=== PATIENT | female | born 1970 | race African-American/Black ===

== ENCOUNTER 2017-11-11 14:52 | Emergency (ER) | payer OTHER, MEDICAID ==
[~2017-11-11] VITALS: Ht 165.1 cm; Wt 112.7 kg
[~2017-11-11 14:52] MED LIST: ABILIFY; ESCI5TAB
[2017-11-11] MEDS ORDERED: CYCLOBENZAPRINE 10MG TABLET PO ONE (16:30)
[2017-11-11] MEDS ORDERED: KETOROLAC 30MG/ML VIAL IM ONE (16:30)
[2017-11-11 17:49] VITALS: BP 130/68
== END 2017-11-11 17:57 | disposition home or self-care (01) ==
LOC: ER 15:59
DX: M54.2 Cervicalgia (principal); M25.512 Pain in left shoulder; M25.511 Pain in right shoulder; I10 Essential (primary) hypertension; E11.9 Type 2 diabetes mellitus without complications; F17.200 Nicotine dependence, unspecified, uncomplicated
CPT/HCPCS: 96372; 99283; J1885

== ENCOUNTER 2018-11-20 09:35 | Emergency (ER) | payer OTHER, MEDICAID ==
[~2018-11-20] VITALS: Ht 165.1 cm; Wt 109.0 kg
[2018-11-20 11:58] LABS: CLARITY URINE CLEAR (CLEAR); COLOR URINE YELLOW (YELLOW); KETONES URINE NEGATIVE (NEGATIVE); LEUKOCYTE ESTERASE URINE NEGATIVE (NEGATIVE); NITRITE URINE NEGATIVE (NEGATIVE); OCCULT BLOOD URINE NEGATIVE (NEGATIVE); PH URINE 6.5 (4.5-8.0); PROTEIN URINE NEGATIVE (NEGATIVE); SPECIFIC GRAVITY URINE 1.007 (1.005-1.030); UROBILINOGEN URINE 0.2 E.U./dL (0.2-1.0)
[2018-11-20 14:40] VITALS: BP 157/92
== END 2018-11-20 14:48 | disposition home or self-care (01) ==
LOC: ER 09:35
DX: N39.0 Urinary tract infection, site not specified (principal); F20.9 Schizophrenia, unspecified; F17.290 Nicotine dependence, other tobacco product, uncomplicated
CPT/HCPCS: 81025; 99283; 99406

== ENCOUNTER 2019-09-26 21:20 | Emergency (ER) | payer MEDICARE, MEDICAID ==
[~2019-09-26] VITALS: Ht 165.1 cm; Wt 104.0 kg
[2019-09-26] MEDS ORDERED: IPRATROPIUM/ALBUTEROL 0.5-3(2.5)MG/3ML NEB HHN ONE (23:00)
[2019-09-27 01:04] VITALS: BP 122/74
== END 2019-09-27 01:05 | disposition home or self-care (01) ==
LOC: ER 21:20
DX: J40 Bronchitis, not specified as acute or chronic (principal); J06.9 Acute upper respiratory infection, unspecified; F32.9 Major depressive disorder, single episode, unspecified; F17.210 Nicotine dependence, cigarettes, uncomplicated; Z71.6 Tobacco abuse counseling
CPT/HCPCS: 71045; 94640; 99283; J7620

== ENCOUNTER 2020-07-27 15:19 | Emergency (ER) | payer OTHER, MEDICAID ==
[~2020-07-27] VITALS: Ht 160 cm; Wt 101.0 kg
[2020-07-27 15:23] VITALS: BP 146/76
== END 2020-07-27 17:17 | disposition home or self-care (01) ==
LOC: ER 15:19
DX: N61.0 Mastitis without abscess (principal); I10 Essential (primary) hypertension; F20.9 Schizophrenia, unspecified
CPT/HCPCS: 99281

== ENCOUNTER 2020-08-18 13:59 | Emergency (ER) | payer MEDICARE, MEDICAID ==
[~2020-08-18] VITALS: Ht 165.1 cm; Wt 100.0 kg
[2020-08-18 14:02] VITALS: BP 126/75
[2020-08-18 18:47] LABS: CLARITY URINE TURBID (CLEAR); COLOR URINE YELLOW (YELLOW); KETONES URINE TRACE (NEGATIVE); LEUKOCYTE ESTERASE URINE 3+ (NEGATIVE); NITRITE URINE NEGATIVE (NEGATIVE); OCCULT BLOOD URINE 3+ (NEGATIVE); PH URINE 6.5 (4.5-8.0); PROTEIN URINE 2+ (NEGATIVE); SPECIFIC GRAVITY URINE 1.025 (1.005-1.030)
== END 2020-08-18 19:40 | disposition home or self-care (01) ==
LOC: ER 13:59
DX: N39.0 Urinary tract infection, site not specified (principal); I10 Essential (primary) hypertension; Z86.59 Personal history of other mental and behavioral disorders
CPT/HCPCS: 81003; 81025; 87077; 87186; 99282

== ENCOUNTER 2022-10-06 18:33 | Emergency (ER) | payer BC, MEDICAID ==
[~2022-10-06] VITALS: Ht 160 cm; Wt 106.0 kg
[2022-10-06] MEDS ORDERED: ASPIRIN 81MG TABLET PO ONE (19:45)
[2022-10-06 21:11] LABS: BASOPHILS % 0.6 % (0.0-2.0); EOSINOPHILS % 3.3 % (0.0-5.0); HEMATOCRIT. 41.1 % (36.0-48.0); HEMOGLOBIN. 13.9 g/dL (12.0-16.0); LYMPHOCYTES % 28.1 % (20.0-50.0); MEAN CORPUSCULAR HEMOGLOBIN 29.5 pg (28.0-32.0); MEAN CORPUSCULAR VOLUME 87.1 fL (81.0-99.0); MEAN PLATELET VOLUME 7.7 fl (7.4-10.4); MONOCYTES % 7.1 % (2.0-8.0); NEUTROPHILS % 60.9 % (40.0-76.0); PLATELET 235 x1000/uL (130-400); RED BLOOD CELL COUNT 4.72 mill/uL (4.2-5.4); RED CELL DISTRIBUTION WIDTH 14.3 % (11.6-14.6)
[2022-10-06 21:19] LABS: CHLORIDE 102 mEq/L (98-107)
[2022-10-06] MEDS ORDERED: POTASSIUM CHLORIDE 20MEQ/PACKET PO NR (22:30)
[2022-10-06] MEDS ORDERED: ASPIRIN 81MG TABLET PO NR (22:30)
[2022-10-06 22:40] VITALS: BP 124/70
== END 2022-10-06 22:40 | disposition home or self-care (01) ==
LOC: ER 19:17
DX: J11.1 Influenza due to unidentified influenza virus with other respiratory manifestations (principal); I10 Essential (primary) hypertension; F20.9 Schizophrenia, unspecified; Z20.822 Contact with and (suspected) exposure to COVID-19
CPT/HCPCS: 36415; 71045; 80053; 83605; 83880; 84484; 85025; 87426; 87804; 93005; 99285; C9803

== ENCOUNTER 2023-01-03 11:13 | Emergency (ER) | payer BC, MEDICAID ==
[~2023-01-03] VITALS: Ht 160 cm; Wt 107.0 kg
[2023-01-03 11:21] VITALS: BP 126/74
[2023-01-03 12:48] LABS: CLARITY URINE CLOUDY (CLEAR); COLOR URINE YELLOW (YELLOW); KETONES URINE NEGATIVE (NEGATIVE); LEUKOCYTE ESTERASE URINE 2+ (NEGATIVE); NITRITE URINE NEGATIVE (NEGATIVE); OCCULT BLOOD URINE 3+ (NEGATIVE); PH URINE 5.5 (4.5-8.0); PROTEIN URINE 1+ (NEGATIVE); SPECIFIC GRAVITY URINE 1.013 (1.005-1.030); UROBILINOGEN URINE 0.2 E.U./dL (0.2-1.0)
[2023-01-03] MEDS ORDERED: CEPH250T MT (13:23)
[2023-01-03] MEDS ORDERED: METR-167 MT (13:23)
== END 2023-01-03 13:42 | disposition home or self-care (01) ==
LOC: ER 11:35
DX: N39.0 Urinary tract infection, site not specified (principal); A59.9 Trichomoniasis, unspecified; F32.A Depression, unspecified; I10 Essential (primary) hypertension
CPT/HCPCS: 81003; 87077; 87186; 99283

== ENCOUNTER 2023-08-25 10:58 | Emergency (ER) | payer BC, MEDICAID ==
[~2023-08-25] VITALS: Ht 165.1 cm; Wt 104.0 kg
[~2023-08-25 10:58] MED LIST changes: +CEPH250T MT; +METR-167 MT
[2023-08-25 11:07] VITALS: BP 134/48; PULSE 78; RESP 20; TEMP 98.3; O2SAT 99
[2023-08-25] MEDS ORDERED: CEPH500C2 MT (12:02)
[2023-08-25] MEDS ORDERED: NYST15PO4 TP (12:03)
== END 2023-08-25 12:15 | disposition home or self-care (01) ==
LOC: ER 10:58
DX: B37.2 Candidiasis of skin and nail (principal); L03.311 Cellulitis of abdominal wall; E11.9 Type 2 diabetes mellitus without complications; I10 Essential (primary) hypertension
CPT/HCPCS: 99283

== ENCOUNTER 2024-02-29 01:15 | Emergency (ER) | payer BC, MEDICAID ==
[~2024-02-29] VITALS: Ht 165.1 cm; Wt 104.0 kg
[~2024-02-29 01:15] MED LIST changes: +CEPH500C2 MT; +NYST15PO4 TP
[2024-02-29 01:26] VITALS: BP 147/69; PULSE 82; RESP 18; TEMP 98; O2SAT 98
[2024-02-29] MEDS ORDERED: ACETAMINOPHEN 325MG TABLET PO ONE (02:15)
[2024-02-29 02:32] LABS: BASOPHILS % 0.6 % (0.0-2.0); EOSINOPHILS % 3.5 % (0.0-5.0); HEMATOCRIT. 39.1 % (36.0-48.0); HEMOGLOBIN. 12.8 g/dL (12.0-16.0); LYMPHOCYTES % 32.1 % (20.0-50.0); MEAN CORPUSCULAR HGB CONC 32.7 g/dL (31.0-37.0); MEAN CORPUSCULAR VOLUME 85.9 fL (81.0-99.0); MEAN PLATELET VOLUME 8.2 fl (7.4-10.4); MONOCYTES % 6.3 % (2.0-8.0); NEUTROPHILS % 57.5 % (40.0-76.0); PLATELET 215 x1000/uL (130-400); RED BLOOD CELL COUNT 4.55 mill/uL (4.2-5.4); RED CELL DISTRIBUTION WIDTH 14.1 % (11.6-14.6)
[2024-02-29 02:38] LABS: CHLORIDE 107 mEq/L (98-107); POTASSIUM 3.5 mEq/L (3.5-5.1); SODIUM 139 mEq/L (136-145)
[2024-02-29 02:39] LABS: CALCIUM 9.2 mg/dL (8.7-10.4); CARBON DIOXIDE 29 mEq/L (21-32)
[2024-02-29 02:44] LABS: CREATININE 0.7 mg/dL (0.6-1.0); GLUCOSE 112 mg/dL (70-105); UREA NITROGEN BLOOD 10 mg/dL (9-23)
[2024-02-29] MEDS ORDERED: CEPHALEXIN 250MG CAPSULE PO ONE (04:45)
[2024-02-29] MEDS ORDERED: ACET-2708 MT (05:03)
[2024-02-29] MEDS ORDERED: CEPH500C2 MT (05:03)
== END 2024-02-29 05:23 | disposition home or self-care (01) ==
LOC: ER 01:25
DX: L03.116 Cellulitis of left lower limb (principal); L03.115 Cellulitis of right lower limb; I10 Essential (primary) hypertension
CPT/HCPCS: 36415; 80048; 85025; 93970; 99284

== ENCOUNTER 2025-04-03 11:30 | Emergency (ER) | payer MEDICARE, MEDICAID ==
[~2025-04-03] VITALS: Ht 157.5 cm; Wt 104.3 kg
[~2025-04-03 11:30] MED LIST changes: +ACET-2708 MT; +NYST15PO13 TP; -NYST15PO4 TP
[2025-04-03 11:32] VITALS: O2SAT 98
[2025-04-03] MEDS ORDERED: FLUO118.2 TOP (12:40)
[2025-04-03] MEDS ORDERED: LORA10CA MT (12:40)
[2025-04-03 12:50] VITALS: BP 137/76; PULSE 63; RESP 17; TEMP 36.8; O2SAT 98
== END 2025-04-03 12:55 | disposition home or self-care (01) ==
LOC: ER 11:45
DX: L23.9 Allergic contact dermatitis, unspecified cause (principal); I10 Essential (primary) hypertension; Z79.899 Other long term (current) drug therapy
CPT/HCPCS: 99282